=== PATIENT | male | born 1995 | race Caucasian/White ===

== ENCOUNTER 2017-01-03 13:42 | Emergency (ER) | payer MEDICAID ==
[~2017-01-03] VITALS: Ht 170.2 cm; Wt 146.1 kg
[2017-01-03 13:48] VITALS: BP 145/81
== END 2017-01-03 15:08 | disposition home or self-care (01) ==
LOC: ED 13:42
DX: J06.9 Acute upper respiratory infection, unspecified (principal); J40 Bronchitis, not specified as acute or chronic; H92.03 Otalgia, bilateral
CPT/HCPCS: J7512; J7613; J7644